=== PATIENT | male | born 2000 | race Caucasian/White ===

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

== ENCOUNTER 2021-08-02 05:44 | Emergency (ER) | payer MEDICAID ==
[2021-08-02 05:50] VITALS: BP 117/47; PULSE 93
[2021-08-02] MEDS ORDERED: Lidocaine 2% Viscous Solution 15 ML UD PO ONE (06:45)
== END 2021-08-02 07:08 | disposition home or self-care (01) ==
LOC: JP.ED 05:44
DX: J02.9 Acute pharyngitis, unspecified (principal); Z88.0 Allergy status to penicillin; Z91.030 Bee allergy status; Z72.0 Tobacco use; Z20.822 Contact with and (suspected) exposure to COVID-19
CPT/HCPCS: 87081; 87635; 87880; 99281; 99284; A9270; U0002